=== PATIENT | female | born 1945 | race Caucasian/White ===

== ENCOUNTER 2016-04-09 14:16 | Day surgery (SDC) | payer OTHER ==
[2016-04-09] MEDS ORDERED: TRIAMCINOLONE ACETONIDE 200 MG/5 ML MDV IM ONE (16:57)
[2016-04-09] MEDS ORDERED: IOPAMIDOL (ISOVUE-M 300) 15 ML VIAL IV ONE (16:57)
--- NOTE | 2016-04-09 22:58 | IR ---
Lumbar Epidural Steroid Injection HISTORY: Spinal stenosis, severe back pain. Consent: Risks and benefits of the procedure were discussed in detail. Informed consent was obtaine d. Medication: Local anesthetic, only, at the preference of the patient. TECHNIQUE: With the patient prone, the low back was prepped and draped in sterile fashion. Using ltiplanar fluoroscopic guidance, 1% Xylocaine was used for local anesthetic. Using an oblique approa ch, an 18-gauge Tuohy needle was inserted into the back of the spinal canal at the L4-L5 interlaminar space. Epidural position was confirmed with 1.5 mL of Isovue-M 300. Spot images were obtained befo re and following the injection of 2 mL of Kenalog (80 mg) and 2 mL of preservative free 1% Xylocaine. The patient tolerated the procedure adequately and was allowed to leave the department after a brie f observation. Epidurogram: Epidural contrast is constricted at the level of the L4-L5 interspace, compatible with spinal stenosis. Features of chronic disk degeneration are found at multiple levels, worst at L4-L5. Facet arthropathy is also noted at multiple levels in the lower lumbar spine. Sacroiliac joints ar e degenerated, left greater than right. IMPRESSIONS 1. Lumbar epidural injection of long-acting steroid and rapid-acting anesthetic via L4-L5. 2. Spinal stenosis, L4-L5. PQRS measures: The patient does not smoke. Medications, including [id number] medications and supplements, are listed in the medical record. Prophylactic antibiotic: Unnecessary. Venous thromb oembolic prophylaxis: Unnecessary.
== END 2016-04-09 16:00 | disposition home or self-care (01) ==
LOC: EEVIPCON 14:16 → FIMAGING 14:16
PROVIDERS: ATTEND Physical Medicine & Rehabilitation
PROC: 3E0S3BZ Introduction of Anesthetic Agent into Epidural Space, Percutaneous Approach (ICD-10-PCS; principal; 2016-04-09)
PROC: 3E0S33Z Introduction of Anti-inflammatory into Epidural Space, Percutaneous Approach (ICD-10-PCS; principal; 2016-04-09)
DX: M48.06 Spinal stenosis, lumbar region (principal)
CPT/HCPCS: J3301; Q9967

== ENCOUNTER → 2017-01-07 | Outpatient (CLI) | payer OTHER | LOC: FIMAGING 15:51 | PROVIDERS: ATTEND Family Medicine | DX: Z12.31 Encounter for screening mammogram for malignant neoplasm of breast (principal) | CPT/HCPCS: G0202 ==

== ENCOUNTER → 2017-02-24 | Outpatient (CLI) | payer OTHER | LOC: FIMAGING 12:37 | PROVIDERS: ATTEND Family Medicine | DX: Z13.820 Encounter for screening for osteoporosis (principal); Z78.0 Asymptomatic menopausal state ==

== ENCOUNTER → 2018-01-16 | Outpatient (CLI) | payer OTHER | LOC: FIMAGING 09:04 | PROVIDERS: ATTEND Physical Medicine & Rehabilitation | DX: M48.061 Spinal stenosis, lumbar region without neurogenic claudication (principal); M51.36 Other intervertebral disc degeneration, lumbar region; M43.16 Spondylolisthesis, lumbar region; M41.86 Other forms of scoliosis, lumbar region ==

== ENCOUNTER → 2018-01-20 | Outpatient (CLI) | payer OTHER | LOC: FIMAGING 13:52 | PROVIDERS: ATTEND Family Medicine | DX: Z12.31 Encounter for screening mammogram for malignant neoplasm of breast (principal) ==

== ENCOUNTER 2018-02-02 12:36 | Day surgery (SDC) | payer OTHER ==
[2018-02-02] MEDS ORDERED: LIDOCAINE 1% 300 MG/30 ML SDV ONE (13:12)
[2018-02-02] MEDS ORDERED: TRIAMCINOLONE ACETONIDE 200 MG/5 ML MDV IM ONE (13:13)
[2018-02-02] MEDS ORDERED: IOPAMIDOL (ISOVUE-M 300) 15 ML VIAL ONE (13:13)
== END 2018-02-02 14:50 | disposition home or self-care (01) ==
LOC: FIMAGING 12:36
PROVIDERS: ATTEND Physical Medicine & Rehabilitation
DX: M48.061 Spinal stenosis, lumbar region without neurogenic claudication (principal); M48.07 Spinal stenosis, lumbosacral region
CPT/HCPCS: J3301; Q9967